=== PATIENT | female | born 1970 | race Caucasian/White ===

== ENCOUNTER → 2018-02-10 | Outpatient (CLI) | payer BC | LOC: COL.RAD 20:15 | DX: Z13.89 Encounter for screening for other disorder (principal); M79.604 Pain in right leg ==

== ENCOUNTER 2021-06-27 12:55 | Emergency (ER) | payer OTHER ==
[~2021-06-27] VITALS: Ht 167.6 cm; Wt 120.5 kg
[2021-06-27 13:08] VITALS: TEMP 98.8
[2021-06-27 14:28] VITALS: BP 131/77; PULSE 76
== END 2021-06-27 14:28 | disposition home or self-care (01) ==
LOC: COL.ER 12:55
DX: R51.9 Headache, unspecified (principal); W22.8XXA Striking against or struck by other objects, initial encounter
CPT/HCPCS: J1200; J2765; J7030